=== PATIENT | female | born 1965 | race Two or more races ===

== ENCOUNTER → 2024-04-01 | Emergency (ER) | payer MEDICAID, OTHER ==
[~2024-04-01] VITALS: Ht 175.3 cm; Wt 80.0 kg
[2024-04-01 20:32] VITALS: BP 144/82; PULSE 84; RESP 18; O2SAT 99
== END | disposition left against medical advice (07) ==
LOC: EDBD 19:59 → ER 19:59
DX: R10.32 Left lower quadrant pain (principal); Z53.21 Procedure and treatment not carried out due to patient leaving prior to being seen by health care provider